=== PATIENT | male | born 1960 | race Caucasian/White ===

== ENCOUNTER 2019-11-13 12:29 | Inpatient (IN) | payer OTHER ==
[~2019-11-13] VITALS: Ht 172.7 cm; Wt 63.0 kg
[2019-11-13 12:31] VITALS: BP 133/83
--- NOTE | 2019-11-13 12:40 | NUR ---
PT BIBA FROM HOME C/O LEFT KNEE & LEFT HIP PAIN S/P FALL OFF SKETEBOARDING AT 9PM LAST NIGHT. DENIES LOC OR HEAD TRAUMA. PER EMS GAVE FENTANYL 100 MG IV AT 12.15 PM TODAY ON SCENE. PT'S LEFT LEG WITH NO ROM. EDEMA, ABRASION, AND MILD DEFORMITY NOTICED ON PT'S LEFT KNEE. NO BRUISING NOTICED ON PT'S OTHER BODY AREA. AAOX4; HR EVEN AND REGULAR; PT DENIES ANY FEVER, CP, SOB, OR COUGH AT THIS TIME; PATIENT STATES PAIN OF 6/10 AT THIS TIME; VSS; PATIENT POSITIONED FOR COMFORT; HOB ELEVATED; BEDRAILS UP X2; BED DOWN. ER MD MADE AWARE OF PT STATUS.
[2019-11-13] MEDS ORDERED: MORPHINE SULFATE 2 MG/ML SYR IVP STA (12:56)
--- NOTE | 2019-11-13 13:05 | NUR ---
XRAY IS AT BEDSIDE.
--- NOTE | 2019-11-13 14:45 | NUR ---
DR. CHAVEZ IS RE-EVALUATING PT AT BEDSIDE.
[2019-11-13] MEDS ORDERED: MORPHINE SULFATE 2 MG/ML SYR IVP PRN (15:25)
[2019-11-13] MEDS ORDERED: LORazepam 2 MG/ML VIAL IVP PRN (15:25)
[2019-11-13] MEDS ORDERED: MORPHINE SULFATE 4 MG/ML SYR IVP PRN (15:25)
[2019-11-13 16:01] LABS: BASOPHILS % (AUTO) 0.4 % (0.0-2.0); EOSINOPHILS # (AUTO) 0.1 K/uL (0-0.4); EOSINOPHILS % (AUTO) 0.7 % (0.0-4.0); HEMATOCRIT 39.8 % (36-52); HEMOGLOBIN 13.4 g/dL (12.0-18.0); LYMPHOCYTES # (AUTO) 1.5 K/uL (2.0-11.5); LYMPHOCYTES % (AUTO) 15.5 % (20.5-51.1); MEAN CORPUSCULAR HEMOGLOBIN 31 pg (27-31); MEAN CORPUSCULAR HGB CONC 34 g/dL (33-37); MEAN CORPUSCULAR VOLUME 90.8 fL (80-94); MONOCYTES # (AUTO) 0.8 K/uL (0.8-1.0); MONOCYTES % (AUTO) 8.2 % (1.7-9.3); NEUTROPHILS # (AUTO) 7.2 K/uL (1.8-7.7); NEUTROPHILS % (AUTO) 75.2 % (42.2-75.2); PLATELET COUNT (AUTO) 226 K/uL (140-450); RED BLOOD CELL COUNT(AUTO) 4.38 MIL/uL (4.20-6.10); RED CELL DISTRIBUTION WIDTH 13.6 % (11.6-13.7); WHITE BLOOD COUNT (AUTO) 9.6 K/uL (4.8-10.8)
--- NOTE | 2019-11-13 16:05 | NUR ---
Lara EVANS med/surg notified of admission request--she will call us back?
[2019-11-13 16:19] LABS: PROTHROMBIN TIME 10.3 secs (10.8-13.4)
[2019-11-13 16:20] LABS: ANION GAP 12.4 (8-16); CARBON DIOXIDE 26.1 mmol/L (21-32); CREATININE 0.8 mg/dL (0.6-1.3); POTASSIUM 3.5 mmol/L (3.5-5.1)
--- NOTE | 2019-11-13 16:50 | NUR ---
Patient admitted to room 106A from ED via gurney, transferred to bed with 2-person moderate assist. Pt is aaox4, no c/o pain at this time. Left AC IV 18G intact @ asymptomatic. Medical hx obtained from patient. Patient oriented to room and unit, verbalized understanding of care plan.
[2019-11-13] MEDS: NACL 0.9% 1,000 ML IV SCH (17:15)
--- NOTE | 2019-11-13 17:33 | NUR ---
Spoke to Dr Murphy re: diet order. Per physician, pt may have regular diet and NPO after midnight.
[2019-11-13 17:45] VITALS: BP 126/81
--- NOTE | 2019-11-13 17:50 | NUR ---
Patient will be admitted to care of [facility]. Admited to MED-SURG. Will go to room 106A. Belongings list completed. Report to Rosl.
--- NOTE | 2019-11-13 19:20 | NUR ---
RECEIVED REPORT FROM IGOR RN. PT IS STABLE IN NO DISTRESS AT THIS TIME. WILL CONTINUE TO MONITOR.
[2019-11-13] MEDS: ONDANSETRON 4 MG/2 ML VIAL IVP PRN (19:53)
--- NOTE | 2019-11-13 20:00 | NUR ---
PT IN BED SEMI-FOWLERS POSITION DENIES ANY PAIN, REPORTED VOMITING S/P TAKING MORPHINE IN THE ER, STATING OPIOIDS MAKE ME NAUSEOUS AND VOMIT AND I HAVEN'T ATE. PT WAS GIVEN ZOFRAN IVP AT 1953 FOR NAUSEA. ABRASIONS TO LEFT KNEE SCABBED WITH MINIMAL REDNESS, NO SWELLING. LEFT HIP AREA HAS NO DISCOLORATION AND NO PAIN AT THAT AREA. PT REPORTS DISCOMFORT TO THE INNER GROIN AREA WITH AMBULATION OR MOVING ABOUT IN BED. CURRENTLY DENIES NEED FOR PAIN MANAGEMENT. NO OTHER INJURIES OBSERVED. HAS IVF NS AT 80ML/.HR ON L AC. PT. EDUCATED ON NPO STATUS AFTER MIDNIGHT. WILL CONTINUE TO MONITOR.
--- NOTE | 2019-11-13 21:00 | NUR ---
PT REPORTS NO MORE NAUSEA AT THIS TIME. PRN EFFECTIVE. DENIES ANY NEED FOR PRN. WILL CONTINUE TO MONITOR.
--- NOTE | 2019-11-13 23:00 | NUR ---
PT IS RESTING IN BED WITH EYES CLOSED. IN SEMI-FOWLERS POSITIONS RESPIRATION EVEN AND UNLABORED. ALL NEEDS ARE MET. CALL LIGHT WITHIN REACH. CALL SAFETY MEASURES IN PLACE. WILL CONTINUE TO MONITOR.
[2019-11-14] VITALS: BP 127/78
[2019-11-14] MEDS: KETOROLAC 30 MG/ML VIAL IVP PRN ×2 (00:16→13:04)
--- NOTE | 2019-11-14 00:16 | NUR ---
DURING ROUNDS PT EXPRESSED INCREASE PAIN, REPORTS 6/10 TO GROIN AREA. DESCRIBED THROBBING. PT'S RESPIRATIONS ARE EVEN AND UNLABORED. REMAINS ON IVF NS AT 80ML/HR. V/S: 989, 77, 18, 127/78, 98 % RA 6/10. PT ASSISTED WITH REPOSITION TO MINIMIZE DISCOMFORT. PT WAS GIVE TORADOL IVP PER MD ORDER FOR PAIN. WILL CONTINUE TO MONITOR.
--- NOTE | 2019-11-14 02:10 | NUR ---
ASLEEP IN BED COVERED WITH BLANKETS. RESPIRATION EVEN AND UNLABORED IN NO DISTRESS. WILL CONTINUE TO MONITOR. NPO STATUS SWITCHED TO NPO AFTER MIDNIGHT TO AFTER BREAKFAST.
--- NOTE | 2019-11-14 04:00 | NUR ---
PT RESTING IN BED COVERED WITH BLANKET. RESPIRATION EVEN AND UNLABORED. IN NO DISTRESS. NO C/O PAIN WILL CONTINUE TO MONITOR.
--- NOTE | 2019-11-14 06:15 | NUR ---
PT IN SEMI-FOWLERS POSITION. IVF NEW BAG WAS REPLACED. REMAINS ON NS AT 80ML/HR. IN NO DISTRESS. RESPIRATION EVEN AND UNLABORED. PT. EDUCATED ON NPO STATUS ON AFTER BREAKFAST SINCE PROCEDURE WILL NOT BE UNTIL 5PM. PT VERBALIZED UNDERSTANDING. REPORTS HAVING TOLERABLE PAIN OF 3/10 DENIES NEED FOR PAIN MANAGEMENT. PT EDUCATED ON WAYS TO CONTROL PAIN. WILL CONTINUE TO MONITOR.
[2019-11-14] MEDS: NACL 0.9% 1,000 ML IV SCH (06:21)
--- NOTE | 2019-11-14 07:36 | NUR ---
WILL ENDORSE TO AM RN FOR CONTINUITY OF CARE. PT IS CURRENTLY LAYING IN BED IN NO DISTRESS.
[2019-11-14] MEDS: ENOXAPARIN 40 MG/0.4 ML SYR SUBQ SCH (09:00)
--- NOTE | 2019-11-14 09:18 | NUR ---
PATIENT HAS BEEN SCREENED AND CATEGORIZED LOW NUTRITION RISK. PATIENT WILL BE SEEN WITHIN 7 DAYS OF ADMISSION. 11/20/[address]
--- NOTE | 2019-11-14 13:52 | NUR ---
VICE PRESIDENT QUALITY NOTE: AYLIN ATTEMPTED TO CONTACTED PATIENT'S FAMILY DONELL ZAMARRIPA [phone] AND LEFT VM TO COMPLETE ASSESSMENT. AYLIN WILL FOLLOW UP. Addendum: 11/15/19 at 1040 by Alonzo Phillip VICE PRESIDENT QUALITY NOTE: AYLIN CONTACTED PATIENT'S EMERGENCY CONTACT, DONELL MARILOU. AYLIN LEFT VM TO COMPLETE ASSESSMENT. AYLIN WILL FOLLOW UP.
[2019-11-14] MEDS ORDERED: KETOROLAC 30 MG/ML VIAL ONE (17:21)
[2019-11-14] MEDS ORDERED: DEXAMETHASONE 4 MG/ML VIAL ONE (17:21)
[2019-11-14] MEDS ORDERED: fentaNYL citrate 0.05 MG/ML VIAL ONE (17:21)
[2019-11-14] MEDS ORDERED: HYDROmorphone PFS 2 MG/ML SYR ONE (17:21)
[2019-11-14] MEDS ORDERED: ONDANSETRON 4 MG/2 ML VIAL ONE (17:21)
[2019-11-14] MEDS ORDERED: PROPOFOL 200 MG/20 ML VIAL IV ONE (17:21)
[2019-11-14] MEDS ORDERED: DESFLURANE 240 ML BTL INH ONE (17:21)
--- NOTE | 2019-11-14 18:32 | NUR ---
OFF UNIT, PICKED UP FOR SURGERY AROUND JUST AFTER 5 PM.
[2019-11-14] MEDS ORDERED: BUPIVACAINE-MPF 0.5% 30 ML VIAL INJ ONE (18:56)
[2019-11-14] MEDS ORDERED: NEOMYCIN/POLYMYXIN/DEXAMETH OP 3.5 GM TUBE ONE (18:59)
[2019-11-14] MEDS ORDERED: NEOMYCIN/POLYMYXIN/BACITRACIN OIN 15 GM TUBE TP ONE (19:00)
[2019-11-14] MEDS ORDERED: METOCLOPRAMIDE 10 MG/2 ML INJ VIAL ONE (19:54)
[2019-11-14] MEDS ORDERED: METOCLOPRAMIDE 10 MG/2 ML INJ VIAL IVP PRN (19:55)
--- NOTE | 2019-11-14 20:20 | NUR ---
PT WHEELED FROM OR, PT 30 MINS VITAL SIGNS X 1 HR TO BE TAKEN, THEN EVERY HR FOR 2 HRS; THEN Q 4. PER ENDORSEMENT PT HAD S/P HIP FEMORAL INTERNAL FIXATION (3 NAIL PINNING). WITH AC ON THE LEFT AC, PATENT AND INTACT. Addendum: 11/15/19 at 0532 by Lucía Mcgrath RN PT IS PALE, COOL TO TOUCH, CAPILLARY REFILL LESS THAN 3 SECS WILL CHECK ON BLEEDING
--- NOTE | 2019-11-14 20:30 | NUR ---
VITAL SIGNS STARTED 30 MINS X 1 HOUR= 2030: 98.5; 18; 98% O2 SAT ON R. A; 77 HR; 127/ 80; 2100: 98.6; 18; 99 02 SAT ON R. A ; 85 HR; 130/ 80
[2019-11-14] MEDS ORDERED: ceFAZolin 1,000 MG VIAL ONE (21:55)
--- NOTE | 2019-11-14 22:30 | NUR ---
VS EVERY HR X 2 HRS: 2230: 98; 18; 99; 80 HR; 130/ 80' 2230: 97.8; 18; 98%; 75 HR ; 128/ 80
[2019-11-15] VITALS: BP 128/80
[2019-11-15] MEDS: ONDANSETRON 4 MG/2 ML VIAL IVP PRN (00:21)
--- NOTE | 2019-11-15 00:21 | NUR ---
PT NAUSEOUS, ADMINISTERED ZOFRAN ORDERED
[2019-11-15] MEDS: NACL 0.9% 1,000 ML IV SCH ×2 (00:55→13:25)
--- NOTE | 2019-11-15 01:00 | NUR ---
WOUND ASSESSMENT DONE- SURGICAL WOUND; WILL CONTINUE TO MONITOR
--- NOTE | 2019-11-15 01:11 | NUR ---
PT STILL C/O OF NAUSEA, WILL ADMINISTER METOCLOPRAMIDE ORDERED ONCE FOR N/V Addendum: 11/15/19 at 0259 by Lucía Mcgrath RN JUST ADMINISTERED THE METOCLOPRAMIDE, PT C/O OF NAUSEA UNRELIEVED BY PREVIOUS MED ONDASETRON. WILL MONITOR
--- NOTE | 2019-11-15 03:15 | NUR ---
PT ABLE TO URINATE USING URINAL 425 ML, NO SIGNS OF RESPIRATORY DISTRESS, DENIES PAIN
[2019-11-15 04:00] VITALS: BP 101/56
[2019-11-15] MEDS ORDERED: ceFAZolin 1,000 MG VIAL ONE (04:36)
--- NOTE | 2019-11-15 05:29 | NUR ---
PT SLEEPING COMFORTABLY, NO SIGNS AND SYMPTOMS OF DISTRESS WILL CONTINUE TO MONITOR
[2019-11-15 06:23] LABS: BASOPHILS % (AUTO) 0.1 % (0.0-2.0); EOSINOPHILS % (AUTO) 0.1 % (0.0-4.0); HEMATOCRIT 35.3 % (36-52); HEMOGLOBIN 11.9 g/dL (12.0-18.0); LYMPHOCYTES # (AUTO) 0.9 K/uL (2.0-11.5); LYMPHOCYTES % (AUTO) 13.4 % (20.5-51.1); MEAN CORPUSCULAR HEMOGLOBIN 31 pg (27-31); MEAN CORPUSCULAR HGB CONC 34 g/dL (33-37); MEAN CORPUSCULAR VOLUME 91.4 fL (80-94); MONOCYTES # (AUTO) 0.6 K/uL (0.8-1.0); NEUTROPHILS % (AUTO) 77.4 % (42.2-75.2); PLATELET COUNT (AUTO) 204 K/uL (140-450); RED BLOOD CELL COUNT(AUTO) 3.86 MIL/uL (4.20-6.10); RED CELL DISTRIBUTION WIDTH 13.7 % (11.6-13.7); WHITE BLOOD COUNT (AUTO) 6.5 K/uL (4.8-10.8)
[2019-11-15 06:35] LABS: CARBON DIOXIDE 27.2 mmol/L (21-32); CREATININE 0.9 mg/dL (0.6-1.3); POTASSIUM 4.2 mmol/L (3.5-5.1)
--- NOTE | 2019-11-15 06:50 | NUR ---
PT A AO X 4, PT ABLE TO MOVE HIS BILATERAL FEET, WITH RESTRICTED LEFT HIP MOVEMENT MAINTAINED. NO BLEEDING ON SITE; WILL ENDORSE TO NEXT SHIFT
--- NOTE | 2019-11-15 07:39 | NUR ---
PT A/OX4. SINUS RHYTHM. LUNG SOUNDS CLEAR, ON ROOM AIR. 18G IV IN LEFT AC WITH NS @80ML/HR. NO BLEEDING AT SITE. NO ACUTE DISTRESS NOTED. SAFETY PRECAUTIONS IN PLACE, BED IN LOW POSITION, CALL LIGHT IN REACH. WILL CONTINUE TO MONITOR.
[2019-11-15] MEDS: ENOXAPARIN 40 MG/0.4 ML SYR SUBQ SCH (08:22)
--- NOTE | 2019-11-15 08:22 | NUR ---
GIVEN LOVENOX SUBQ IN THE RIGHT UPPER ARM. PLATELET IS 204. PHYSICAL THERAPIST WILL COME VISIT PATIENT IN AN HOUR. PATIENT WANTS PAIN MEDICATION AND ZOFRAN BEFORE PT. WILL GIVE THEM TO HIM BEFORE PT. PATIENT AWARE AND VERBALIZED UNDERSTANDING.
[2019-11-15] MEDS ORDERED: ACET-1182 PO (09:30)
[2019-11-15] MEDS ORDERED: LOV40I SUBQ (09:30)
--- NOTE | 2019-11-15 10:41 | NUR ---
RECEIVED ORDER FOR HOME HEALTH FOR PT AND WALKER. FAXED CLINICALS TO [facility], [employer] FOR HOME HEALTH AND [employer] FOR WALKER. CONTACTED KAYE FROM [facility] SHE IS WORKING ON AUTH AND WILL PROVIDE ME WITH THEM SHORTLY. SPOKE TO PATIENT HE IS AGREEABLE TO HOME HEALTH. Addendum: 11/15/19 at 1147 by Hailey Vidal CM RECEIVED AUTH FROM KAYE [facility]. [facility] AUTH [id number] AUTH FOR HOME HEALTH [id number]. CONTACTED SIN AT [facility] TO PROVIDE HIM AUTH FOR WALKER. WE WILL PROVIDE PATIENT A WALKER AND REPLACE IT WITH THE ONE SIN SHIPS TO THE HOSPITAL. WILL CONTACT RUCHI FROM [employer] [phone] TO PROVIDE HER AUTH FOR HOME HEALTH. Addendum: 11/15/19 at 1211 by Hailey Vidal CM FOLLOWED UP WITH RUCHI AT [facility] [phone]. THEY ARE ABLE TO ACCEPT THIS PATIENT. PROVIDED HER WITH AUTH. NOTIFKRYSTLE MOORE OF ACCEPTING HOME HEALTH. Addendum: 11/16/19 at 1343 by Tammi Lewis DC PLANNING: CALLED CANDY CHÁVEZ'S OFFICE [phone] SCHEDULED FOLLOW UP APPOINTMENT ON NOVEMBER 29,1PM CALLED PT'S CELL PHONE [phone] NOTIFIED HIM HIS [place]OH[place] DATE. PATIENT VERBALIZED UNDERSTANDING.
[2019-11-15] MEDS: ACETAMINOPHEN 325 MG TAB PO PRN ×2 (10:43→15:26)
--- NOTE | 2019-11-15 10:48 | NUR ---
PT C/O 08/13 PAIN. GIVEN TYLENOL PRN FOR PAIN. NO ACUTE DISTRESS NOTED. WILL CONTINUE TO MONITOR.
[2019-11-15 12:11] VITALS: BP 101/57
--- NOTE | 2019-11-15 12:50 | NUR ---
PATIENT IS EATING LUNCH AT THIS TIME
--- NOTE | 2019-11-15 12:54 | NUR ---
DR. ESTRELLA, ORTHOPEDIC, CLEARED PATIENT TO BE DISCHARGE.
--- NOTE | 2019-11-15 13:37 | NUR ---
GIVEN DISCHARGE INSTRUCTIONS. INFORMED THAT [facility] WILL BE HIS HOME HEALTH FOR PT. PROVIDED CRUTCHES AND WALKER. PHYSICAL THERAPIST EVALUATED PATIENT -PER DEREK, PATIENT DID GOOD. BREANA WAS PRECRIBED, PRESCRIPTION GIVEN TO THE PATIENT. HE IS REQUESTING FOR ANTI EMETIC MEDICATION, WILL NOTIFY DR. PAINTER FOR THAT. NO FURTHER QUESTIONS ASKED. PATIENT STATED DONELL, HIS FRIEND, WILL BE HIS RIDE HOME BETWEEN [phone]. PATIENT SIGNED DISCHARGE PAPERWORK.
--- NOTE | 2019-11-15 15:31 | NUR ---
WALKER AND CRUTCHES HAVE BEEN PROVIDED. PATIENT REQUESTED TO USE WHEELCHAIR FOR DISCHARGE
--- NOTE | 2019-11-15 15:31 | NUR ---
PT GIVEN TYLENOL PRN FOR 5/10 PAIN. NO ACUTE DISTRESS NOTED.
--- NOTE | 2019-11-15 15:42 | NUR ---
DISCONTINUED IV SITE AND REMOVED ID BAND.
--- NOTE | 2019-11-15 15:48 | NUR ---
INFORMED THAT [employer] [facility] HERE IS SETTING UP AN APPT WITH DR. ESTRELLA. GIVEN DR. ESTRELLA'S OFFICE JUST IN CASE CM WAS UNABLE TO SET ONE UP, HE CALLS INSTEAD. PATIENT VERBALIZED UNDERSTANDING.
--- NOTE | 2019-11-15 15:50 | NUR ---
DISCHARGE PATIENT VIA WHEELCHAIR. BELONGINGS WITH PATIENT. PATIENT IS IN STABLE CONDITION. PATIENT IS WEARING SURGICAL MASK
== END 2019-11-15 15:50 | disposition home health service (06) | DRG 308 ==
LOC: MED 12:29 → MMU 15:26 → MTU 16:20
PROVIDERS: ADMIT Internal Medicine Pulmonary Disease; ATTEND Internal Medicine Pulmonary Disease
PROC: 0QS734Z Reposition Left Upper Femur with Internal Fixation Device, Percutaneous Approach (ICD-10-PCS; principal; 2019-11-14 17:00)
DX: S72.002A Fracture of unspecified part of neck of left femur, initial encounter for closed fracture (principal); W18.39XA Other fall on same level, initial encounter; Y93.51 Activity, roller skating (inline) and skateboarding; Y92.89 Other specified places as the place of occurrence of the external cause; Y99.8 Other external cause status
CPT/HCPCS: 36415; 71045; 72192; 73502; 73562; 80048; 84484; 85025; 85610; 85730; 86886; 86900; 86901; 87081; 96374; 97110; 97112; 97116; 97161-GP; 99285; C1713; J0690; J1100; J1170; J1650; J1885; J2270; J2405; J2704; J2765; J3010; J3490; J7030; J7060; Q0092